=== PATIENT | male | born 1950 | race Caucasian/White ===

== ENCOUNTER 2022-06-16 07:41 | Inpatient (IN) ==
--- NOTE | 2022-05-28 14:00 | PAT Medication Instructions ---
Medication Instructions Date of Service May 28, 2022 Home Medications Alaria [place] 1 tab PO BID [place] 1 tab PO BID Reishi Oxly 1 tab PO QAM Oxly Nutrition 1 tab PO BID Oxly Nutrition [place] 1 tab PO BID Oxly Nutrition [place] 1 tab PO BID ascorbate calcium (vitamin C) 500 mg capsule 500 mg PO BID cholecalciferol (vitamin D3) 50 mcg (2,000 unit) capsule (Vitamin D3) 50 mcg PO QAM STOP taking 2 weeks before surgery Alaria Ox[place] 1 tab PO BID [place] 1 tab PO BID Reishi Oxly 1 tab PO QAM Oxly Nutrition 1 tab PO BID Oxly Nutrition [place] 1 tab PO BID Oxly Nutrition [place] 1 tab PO BID DO NOT take the morning of surgery ascorbate calcium (vitamin C) 500 mg capsule 500 mg PO BID cholecalciferol (vitamin D3) 50 mcg (2,000 unit) capsule (Vitamin D3) 50 mcg PO QAM Take evening before surgery ascorbate calcium (vitamin C) 500 mg capsule 500 mg PO BID OTHERWISE NOTHING TO EAT OR DRINK AFTER MIDNIGHT Other Notes If you have any questions please call us at [phone] or [phone] or [phone] or [phone]
--- NOTE | 2022-06-03 09:46 | History & Physical Report ---
Date of Service June 03, 2022 date of surgery: 06/16/22 Procedure: Right Total Knee Arthroplasty Surgeon: Dalton Hernandez Assessment & Plan (1) Arthritis of right knee: Plan: Further care discussed with patient and at this point in time has failed conservative measures and would like to proceed with a right total knee replacement. Plan on discharge will be home with home health physical therapy. DVT prophylaxiswith TEDs, SCDs and will also place on aspirin 81 mg p.o. b.i.d. for a month postop. Patient will have follow up appointment in our office two weeks post op for staple/suture removal and re-evaluation. Patient otherwise has no other questions or concerns. The risks and benefits have been discussed including, but not limited to, risk of infection, nerve injury, stiffness, loss of motion, failure to improve, etc. Reasonable outcomes and options of treatment were discussed. An explanation of appropriate alternatives to the procedure that may be advantageous were discussed and their risks and benefits, as well as the risks and benefits of not proceeding with treatment. I offered to answer any additional inquiries concerning the treatment involved. All the patient's questions were answered. The patient is agreeable, understanding of the treatment plan and alternatives, and wishes to proceed with the treatment plan. History of Present Illness Chief Complaint: Right knee pain Primary Care Provider: Devon Lopez Rashad is a 71 year old male who complains of right knee pain, presents for pre- op evaluation prior to a right total knee replacement by Dr Hernandez at [facility]. he complains of pain, decreased range of motion, and stiffness in the right knee. Currently the patient states that the symptoms are moderate-severe and his pain is described as aching, sharp and throbbing. The symptoms are aggravated by ascending stairs, daily activities, first steps while awake walking. Prior NSAIDs include IBU and Aleve. He has been treated with previous Zilretta and visco injections in the past without much relief. Allergies Allergy/AdvReac Type Severity Reaction Status Date / Time No Known Allergies Allergy Verified 05/27/22 10:10 Home Medications Medication Instructions Recorded Confirmed Type Alaria [place] 1 tab PO BID 05/27/22 05/27/22 History Old Marucu 1 tab PO BID 05/27/22 05/27/22 History Reishi [place] 1 tab PO QAM 05/27/22 05/27/22 History [place] Nutrition 1 tab PO BID 05/27/22 05/27/22 History [place] Nutrition Ciss[place] 1 tab PO BID 05/27/22 05/27/22 History [place] Nutrition Japense Knot 1 tab PO BID 05/27/22 05/27/22 History ascorbate calcium (vitamin C) 500 500 mg PO BID 05/27/22 05/27/22 History mg capsule cholecalciferol (vitamin D3) 50 50 mcg PO QAM 05/27/22 05/27/22 History mcg (2,000 unit) capsule (Vitamin D3) Past Med/Surg History Medical History Appendiceal carcinoid tumor (~2013) Chronic back pain Degenerative disc disease History of COVID-10 October 2022. hospitalized for 1 week at [facility]. no ventilator. mild covid pneumonia at the time. occasional voice weakness. Hx of colonic polyp Spinal stenosis Surgical History H/O hemicolectomy (~2013) [facility] History of appendectomy (~2013) PAH (not a complete removal), had a drainage tube -> appendiceal tumor found and transferred care to [place] History of colonoscopy Status post endovenous radiofrequency ablation (RFA) of saphenous vein bilateral Family History Other No family history of adverse response to anesthesia Social History Smoking Status: Never smoker Second Hand Exposure: No; Do You Dip or Chew Tobacco: No; Tobacco Cessation Education Requested by Patient: No Hx Alcohol Use: No Hx Substance Use: No Preferred Language: Nigerien Communication Ability: Effective Compressor Service Technician Required: No Beliefs That Will Affect Care: None Current Living Situation: Significant Other Other Information That Helps Us Care for You: No Feels Safe at Home: Yes Safety Concerns: Feels Safe At This Time Assistive Devices: Denture - Upper and Walker Assistive Devices Comment: lower partial Review of Systems Review of Systems: All systems reviewed & are unremarkable except as noted in HPI & below Constitutional: no fever, no chills and no sweats Respiratory: no cough and no dyspnea Cardiovascular: no chest pain, no dyspnea and no orthopnea Gastrointestinal: no abdominal pain, no nausea and no vomiting Musculoskeletal: as per Subjective / HPI Physical Exam Physical Exam: HT: 5ft 10in WT: 131kg Constitutional: WD/WN, vitals as above no acute distress Respiratory: normal respiratory effort, lungs clear to auscultation no respiratory distress, no labored breathing and does not use accessory muscles Cardiovascular: RRR, no murmur, no edema Gastrointestinal (Abdomen): normal bowel sounds, soft, nontender, no hepatosplenomegaly Musculoskeletal: Knee: + knee abnormal to inspection (RIGHT KNEE: ), + effusion (+1 effusion), + limited ROM of knee (ROM 0/3/110), + knee ROM with crepitation, + joint line tenderness (medial joint line) and + Javi's sign positive; no deformity, no skin erythema, no ecchymosis, no surgical incision, no valgus laxity, no varus laxity, anterior drawer test negative, Kallie's sign negative and pivot shift test negative Results & Data Results & Data ([facility]) Diagnostic Findings Right Knee X-ray: Right knee series showing advanced degenerative changes to the right knee, narrowing of the medial compartment and patello-femoral joint with patellar spurring noted, findings showing joint space narrowing of the medial compartment and patello-femoral joint, osteophyte formation and subchondral sclerosis noted. overall varus alignment. no acute bony pathology noted.
--- NOTE | 2022-06-03 14:14 | Anesthesiology Consultation ---
Date of Service June 03, 2022 Assessment & Plan (1) Encounter for pre-operative examination: Plan - Case reviewed with Dr. De aPz who advised that patient is acceptable to proceed if no active bleeding issues such as bleeding gums/nosebleeds. Dr. Mix advised no bleeding gums, nosebleeds or other indications of bleeding at this time. He states his platelets have chronically been reduced without issue/complication. - medical clearance 06/02/22: "...preop clearance...right total knee...lab work, EKG and chest x-ray done...all were unremarkable...cleared from medical standpoint for surgery..." - COVID screening: Per assessment on 06/03/2022: Travel screen negative, no known COVID-19 positive contacts or current COVID-19 related symptoms in past 2 weeks. Surgeon arranging preop COVID testing, scheduled 06/12/2022. Awaiting results. Chart Review Chart Review: Acceptable Risk for Surgery and Patient seen in Pre Admission Testing Teaching & Discussion Pre-Anesthesia Teaching/Discussion Notes: Instructed NPO after midnight before surgery, except medications with 15 cc of water. Medication instructions provided according to the PAT guidelines. History Surgery Operation Date: 06/16/22 14:05 Proposed Procedures p Right Total Knee Arthroplasty - Dalton Hernandez DO Height/Weight Height: 5 ft 10 in Weight: 135.5 kg Allergies Allergy/AdvReac Type Severity Reaction Status Date / Time No Known Allergies Allergy Verified 05/27/22 10:10 Medications Home Medications Medication Instructions Recorded Confirmed Last Taken Alaria [place] 1 tab PO BID 05/27/22 05/27/22 Unknown Old Marucu 1 tab PO BID 05/27/22 05/27/22 Unknown Reishi [place] 1 tab PO QAM 05/27/22 05/27/22 Unknown [place] Nutrition 1 tab PO BID 05/27/22 05/27/22 Unknown [place] Nutrition Ciss[place] 1 tab PO BID 05/27/22 05/27/22 Unknown [place] Nutrition Japense Knot 1 tab PO BID 05/27/22 05/27/22 Unknown ascorbate calcium (vitamin C) 500 500 mg PO BID 05/27/22 05/27/22 Unknown mg capsule cholecalciferol (vitamin D3) 50 50 mcg PO QAM 05/27/22 05/27/22 Unknown mcg (2,000 unit) capsule (Vitamin D3) Past Medical History Medical History (Updated 06/03/22 @ 15:11 by Maye Kim PA-C) Appendiceal carcinoid tumor (~2013) Chronic back pain Colon cancer Degenerative disc disease History of COVID-10 October 2022. hospitalized for 1 week at [facility]. no ventilator. mild covid pneumonia at the time. occasional voice weakness. Spinal stenosis Patient denies h/o stroke, seizures, heart attack, heart failure, DM, HTN, blood clots or blood transfusions. Exercise / Class Metabolic Activity III < 4 Walking/Shop/Light housework (denies CP or SOB with usual activities) Past Family History Family History Other No family history of adverse response to anesthesia Past Surgical History Surgical History (Updated 06/03/22 @ 14:56 by Maye Kim PA-C) H/O hemicolectomy 09/2015, [facility] History of appendectomy (~2013) PAH (not a complete removal), had a drainage tube -> appendiceal tumor found and transferred care to [place] History of colonoscopy Status post endovenous radiofrequency ablation (RFA) of saphenous vein bilateral Past Anesthesia History No Hx of Anesthesia Complications and No Family Hx of Anesthesia Complications History of PONV No Hx of PONV and No Hx of Motion Sickness Social History Smoking Status: Never smoker Do You Dip or Chew Tobacco: No Hx Alcohol Use: Yes alcohol intake frequency: holidays/special occasions only Hx Substance Use: No Review of Systems Patient denies chest pain, shortness of breath, dyspnea on exertion, snoring, witnessed apneas, reflux, fever, chills, cough, wheezing, or palpitations. Physical Exam Vital Signs Vitals BP 153/82 P 63 TEMP 98.4 SP02 96% on RA RESP 17 Physical Mildly limited cervical extension range of motion without pain TMD 3.5 finger breaths Mallampati Score 2 Dentition: full upper denture and partial lower denture, two remaining lower teeth; denies chipped or loose teeth Lungs: normal respiratory effort. Clear throughout to auscultation, no adventitious breath sounds Cardiac: regular rate and rhythm, no murmurs noted Carotid arteries: negative bruit bilat Lab Results Anesthesia Preop Results Results Anesthesia Widget: PT 10.9 Seconds (9.0-12.0) 06/03/22 PTT 27.6 Seconds (21.0-31.0) 06/03/22 INR 1.0 (0.9-1.1) 06/03/22 HA1c 5.2 % (4.5-5.6) 06/03/22 Urine Color Dark Yellow 06/03/22 Urine Appearance Clear (Clear) 06/03/22 Urine pH 5.0 (4.5-7.5) 06/03/22 Urine Specific Mobile 1.020 (1.000-1.030) 06/03/22 Urine Protein Negative (Negative) 06/03/22 Urine Glucose (UA) Negative (Negative) 06/03/22 Urine Ketones Negative (Negative) 06/03/22 Urine Blood Negative (Negative) 06/03/22 Urine Nitrite Negative (Negative) 06/03/22 Urine Bilirubin Negative (Negative) 06/03/22 Urine Urobilinogen Negative (Negative) 06/03/22 Urine Leukocyte Esterase Negative (Negative) 06/03/22 Blood Type B Positive 06/03/22 Antibody Screen NEGATIVE 06/03/22 Testing Laboratory Results 04/23/2022 WBC: 6.7 H/H: 16/48 PLATELETS: 128 SODIUM: 142 POTASSIUM: 4.3 CHLORIDE: 109 CO2: 26 BUN: 21 CREATININE: 1.1 GLUCOSE: 91 Electrocardiogram Date: 06/03/22 Sinus bradycardia, rate 51 bpm RBBB Chest X-Ray Date: 04/23/22 2.1 cm nodular density overlies the right upper lung raising the possibility of a pulmonary nodule. Further evaluation is recommended with contrast enhanced CT of the chest Diffuse idiopathic skeletal hyperostosis Mild degenerative changes Mildly exaggerated thoracic kyphosis
[~2022-06-16 07:41] MED LIST: ACETAMINOPHEN 500 MG TAB PO SCH; CeleBREX 200 MG CAP PO SCH; FAMOTIDINE 20 MG TAB PO SCH; GABAPENTIN 300 MG CAP PO SCH; LR 15ML/HR IV SCH; METOCLOPRAMIDE HCL 10 MG TABLET PO SCH; ROPIVACAINE 0.5% HCL/PF 150 MG, BUPIVACAINE 0.75% MPF 20 ML, EPINEPHrine 30MG/30ML (OR ... INFIL SCH; TRANEXAMIC ACID 1,000 MG **IV Intra-op IV SCH; TRANEXAMIC ACID 1,000 MG **IV Pre-op IV SCH; dexAMETHasone 4 MG TAB PO SCH
[2022-06-16] MEDS ORDERED: ROPIVACAINE 0.5% 5 MG/ML 30 ML VIAL ONE (07:57)
[2022-06-16] MEDS ORDERED: BUPIVACAINE 0.5 % 5 MG/1 ML PF 10ML VIAL ONE (07:57)
[2022-06-16] MEDS ORDERED: EPINEPHrine INJ 1 MG/ML AMP ONE (07:57)
--- NOTE | 2022-06-16 08:41 | History & Physical Bridge Note ---
Date of Service June 16, 2022 History & Physical Bridge Note I have examined the patient, reviewed the History & Physical and in the interval since the performance of the History & Physical I have noted the following changes of clinical significance: no changes noted
[2022-06-16] MEDS ORDERED: DEXAMETHASONE SOD INJ 4 MG/ML VIAL ONE (10:42)
[2022-06-16] MEDS ORDERED: LIDOCAINE 2% MPF LOCAL 5 ML VIAL INFIL ONE (10:42)
[2022-06-16] MEDS ORDERED: MIDAZOLAM HCL 1 MG/ML 2ML VIAL ONE (10:42)
[2022-06-16] MEDS ORDERED: PROPOFOL IV EMULSION 10 MG/ML 20 ML VIAL IV ONE ×2 (10:42→11:45)
[2022-06-16] MEDS ORDERED: fentaNYL citrate 100 MCG/2 ML VIAL ONE (10:42)
[2022-06-16] MEDS ORDERED: ORTHO JOINT ANESTHETIC ONE (10:56)
--- NOTE | 2022-06-16 12:34 | Operative Report ---
Post Operative Report Pre & Post Diagnosis Operation Date: 06/16/22 10:45 Pre-Op Diagnosis: Osteoarthritis, Right Knee Post-Op Diagnosis: Osteoarthritis, Right Knee I identified the patient and participated in the time-out.: Yes Procedure Operation Date: 06/16/22 10:45 Actual Procedures p Right Total Knee Arthroplasty(Right) utilizing [employer] journey to an en bloc total knee arthroplasty size femur 9 tibia 7 polyeleven patella 35 adams- Dalton Hernandez DO Surgeon Dalton Hernandez DO Scrap Piler JUSTYN Ross Estimated Blood Loss 5 Findings Consistent with Post-Op Diagnosis Patient presents with severe end-stage tricompartmental DJD varus alignment subchondral sclerosis marginal osteophyte subchondral cystic changes moderate to large effusion Specimens Bone and cartilage Drains Medium bore Hemovac Anesthesia Type MAC Spinal Regional Complications none Disposition Accompanied Patient To Recovery: No Disposition: Recovery Room Indications Patient resents with severe end-stage DJD no response to conservative manage including physical therapy anti-inflammatories relative rest activity modification corticosteroid injection viscosupplementation above intraoperative findings were noted. Description of Procedure After proper prepping and draping of the Right lower extremity anterior midline incision was made over the region of the extensor extensor mechanism after meticulous hemostasis was obtained and maintained in subcutaneous tissues a medial parapatellar incision was made The patella was subluxed lateralward the medial lateral gutter were cleaned from any hypertrophic synovitis and scar tissue of the distal femoral block was placed and the distal femoral osteotomy cut was made subsequently the chamfers anterior and posterior osteotomy cuts were made utilizing the 4-in-1 block the tibia was subsequently subluxed anteriorward medial and ateral meniscal remnants were excised in their entirety remnants of the anterior and posterior cruciate ligaments were excised in their entirety excellent exposure of the proximal tibia was obtained the tibial osteotomy guide was placed on the proximal tibial osteotomy cut was made once again the knee was irrigated with copious amounts of sterile saline solution the patella was subsequently everted lateralward thickened scar tissue around the patella was removed the patella was subsequently cut utilizing a freehand technique and was drilled prepared for final preparation and placement of patella socially flexion-extension gaps were checked and the equal and symmetric trials were placed to the appropriate femoral and tibial trials with poly-spacer being placed for equal flexion and extension gaps and full range of motion including extension to 0 and flexion to 140 the trial components after having been taken to recovery range of motion was subsequently removed meticulous hemostasis was obtained and maintained subsequently a knee block injection of joint cocktail including ropivacaine 0.5% 150 mg. Bupivacaine 0.5% epinephrine 1-200,030 mL's toradol 30 mg dexamethasone 4 mg ketamine 10 mg clonidine 100 micrograms normal saline solution 30 mg was infiltrated into the soft tissues of the posterior knee medial lateral gutters and periosteal synovium special attention was paid to protect neurovascular structures at all times subsequently trial components having been removed the knee was irrigated with sterile saline solution. debris was removed the proximal tibia was subsequently prepared and was made ready for the placement of the tibial component tibial component was also cemented and tamped into position the femoral component was subsequently placed and cemented in the position the patellar component was subsequently cemented in position because hemostasis once again obtained and maintained wound having been thoroughly irrigated with debridement and debridement lavage was performed as well as a medial parapatellar incision closed with #1 Vicryl in interrupted fashion subcutaneous was closed with #2 Vicryl skin was closed with skin clips. PA-C was necessary for prepping and drapping as well as wound closure of deep fascia Sub cutaneous tissue and skin and was necessary for the case. A sterile compressive dressing was placed patient was taken to recovery in stable condition of report dictated by David I attest to the content of the Intraoperative Record and any orders documented therein. Any exceptions are noted below.Due to the complex nature of the procedure, the entire surgery was performed with the operational assistance of JUSTYN Ross. The prosthetics assistant, under direct supervision, was involved in the actual performance of all aspects of the surgical procedure including hemostasis, tissue retraction and incision, instrument management, patient positioning, and wound closure. I attest to the content of the Intraoperative Record and any orders documented therein. Any exceptions are noted below.
--- NOTE | 2022-06-16 13:44 | Anesthesiology Progress Note ---
Date of Service June 16, 2022 Anesthesia Post Procedure Vital Signs Vital Signs: Temp Pulse Pulse Resp BP Pulse Ox O2 Del Method 06/16/22 13:40 59 L 17 118/62 97 Room Air 06/16/22 13:30 59 L 15 106/56 L 96 Oxymask 06/16/22 13:20 58 L 12 104/54 L 96 Oxymask 06/16/22 13:13 36.3 C L 64 14 104/51 L 97 Oxymask 06/16/22 08:14 36.8 C 58 L 20 166/86 H 96 Room Air O2 Flow Rate 06/16/22 13:40 06/16/22 13:30 4 06/16/22 13:20 4 06/16/22 13:13 6 06/16/22 08:14 Transfer of Care Handoff Completed per policy Notes Mental Status: alert / awake / arousable Patient Amnestic to Procedure: Yes Nausea / Vomiting: adequately controlled Pain: adequately controlled Airway Patency, RR, SpO2: stable & adequate BP & HR: stable & adequate Hydration State: stable & adequate Neuraxial Anesthesia: was administered and sensory block is resolving Anesthetic Complications: no major complications apparent and Pt Satisfied with anesthetic care
--- NOTE | 2022-06-16 14:03 | XRay Report ---
RIGHT KNEE 2 VIEWS History: Right total knee arthroplasty. Degenerative arthritis. Postop. FINDINGS: The patient is status post a right total knee arthroplasty. The hardware is intact. No frac ture or dislocation . Surgical drains are in place. IMPRESSION: Right total knee arthroplasty. No evidence for hardware complication. ACT 112: Negative or not required by law. Electronically signed by: Reji Lew M.D. 06/16/2022 2:02 PM
[2022-06-16] MEDS ORDERED: diphenhydrAMINE Capsule 25 MG CAP PO PRN (15:24)
[2022-06-16] MEDS ORDERED: MAGNESIUM HYDROXIDE SUSP 30 ML UDC PO PRN (15:24)
[2022-06-16] MEDS ORDERED: HYDROmorphone INJ 1 MG/ML SYRINGE IV PRN (15:24)
[2022-06-16] MEDS ORDERED: NALOXONE HCL 0.4 MG/1 ML VIAL/CARP IV PRN (15:24)
[2022-06-16] MEDS ORDERED: ONDANSETRON INJ 2 MG/ML 2 ML VIAL IV PRN (15:24)
[2022-06-16] MEDS ORDERED: oxyCODONE HCL IR 5 MG TAB (IMMEDIATE RELEASE) PO PRN (15:24)
[2022-06-16] MEDS ORDERED: METOCLOPRAMIDE HCL INJ 5 MG/ML 2 ML VIAL IV PRN (15:24)
[2022-06-16] MEDS ORDERED: bisacodyL 10 MG SUPP PR PRN (15:24)
[2022-06-16] MEDS: KETOROLAC TROMETHAMINE 15 MG/ML VIAL IV SCH ×2 (16:43→20:55)
[2022-06-16] MEDS: ACETAMINOPHEN 500 MG TAB PO SCH ×2 (16:43→22:21)
[2022-06-16] MEDS: SODIUM CHLORIDE 0.9% 1000ML 1,000 ML IV SCH (16:43)
[2022-06-16] MEDS: ceFAZolin 2000MG 2,000 MG/15 ML SYR IV SCH (18:39)
[2022-06-16] MEDS: ASCORBIC ACID 500 MG TAB PO SCH (20:52)
[2022-06-16] MEDS: DOCUSATE SODIUM 100 MG CAP PO SCH (20:52)
[2022-06-16] MEDS: ASPIRIN 81 MG ECTAB PO SCH (20:52)
[2022-06-16] MEDS: CeleBREX 200 MG CAP PO SCH (20:53)
[2022-06-16] MEDS ORDERED: SENNA 8.6 MG TAB PO SCH (21:00)
[2022-06-17] MEDS: SODIUM CHLORIDE 0.9% 1000ML 1,000 ML IV SCH (01:22)
[2022-06-17] MEDS: ceFAZolin 2000MG 2,000 MG/15 ML SYR IV SCH (02:25)
[2022-06-17] MEDS: KETOROLAC TROMETHAMINE 15 MG/ML VIAL IV SCH ×2 (02:25→10:44)
[2022-06-17] MEDS: ACETAMINOPHEN 500 MG TAB PO SCH ×2 (05:05→13:23)
[2022-06-17 08:25] LABS: Hematocrit (blood only) 43.1 % (40.1-51.0); Hemoglobin 15.2 g/dl (14.0-18.0); Mean Corpuscular Hemoglobin 31.3 pg (25.0-34.0); Mean Corpuscular Hgb Conc 35.3 g/dL (32.0-36.0); Mean Corpuscular Volume 88.9 fL (80.0-100.0); Mean Platelet Volume 12.1 fL (9.4-12.4); Platelet Count 144 K/uL (130-400); RDW Coefficient of Variation 13.1 % (11.5-14.5); RDW Standard Deviation 42.4 fL (36.4-46.3); Red Blood Count 4.85 M/uL (4.63-6.08); White Blood Count 14.15 K/ul (4.8-10.8)
[2022-06-17 08:45] LABS: BUN Creatinine Ratio 18.5 (10-20); Calcium 8.7 mg/dl (8.5-10.1); Creatinine Clr Calc Pharmacy 84.2 ml/min; Est GFR (African American) 78.5 ml/min; Est GFR (Non-African American) 67.7 ml/min; Potassium 3.8 mmol/L (3.5-5.1)
[2022-06-17] MEDS ORDERED: CHOLECALCIFEROL 1,000 UNITS 25 MCG TAB PO SCH (09:00)
[2022-06-17] MEDS ORDERED: MULTIVITAMIN TAB PO SCH (09:00)
[2022-06-17] MEDS: ASCORBIC ACID 500 MG TAB PO SCH (10:42)
[2022-06-17] MEDS: CeleBREX 200 MG CAP PO SCH (10:42)
[2022-06-17] MEDS: ASPIRIN 81 MG ECTAB PO SCH (10:42)
[2022-06-17] MEDS: DOCUSATE SODIUM 100 MG CAP PO SCH (10:43)
--- NOTE | 2022-06-17 14:39 | Orthopedic Progress Note ---
Date of Service June 17, 2022 Assessment & Plan (1) Arthritis of right knee: Plan: Postop day #1 right total knee arthroplasty -PT/OT -Pain management as written -AM labs as above -DVT prophylaxis: SCDs, teds, aspirin 81 mg twice daily -Discharge planning: Plan on discharge with outpatient PT. Plan to discharge home today. Admission and Anticipated Discharge Date Admission Date: June 16, 2022 Subjective Patient is postop day 1 right total knee. He is doing well this morning. He is hoping to go home. No other complaints. Denies chest pain, shortness breath, nausea/vomiting/diarrhea, fever/chills. Review of Systems Review of Systems: All systems reviewed & are unremarkable except as noted in Subjective Physical Exam Physical Exam: Right knee: Dressing is clean, dry, intact. Toes are mobile, no calf tenderness. Good dorsiflexion. Distally neurovascular status and sensation intact. Constitutional: WD/WN, vitals as above Results & Data ([place]) Vital Signs (Past 12 Hours) Vital Signs Temp Pulse Resp BP Pulse Ox O2 Del Method 06/17/22 12:31 36.7 C 55 L 18 148/76 H 97 Room Air 06/17/22 07:54 36.4 C L 56 L 18 189/73 H 96 Room Air 06/17/22 03:02 36.6 C 54 L 17 144/78 H 96 Room Air Laboratory Results Lab Results 06/16/22 06/17/22 06/17/22 Range/Units 08:03 07:53 07:53 WBC 14.15 H (4.8-10.8) K/ul RBC 4.85 (4.63-6.08) M/uL Hgb 15.2 (14.0-18.0) g/dl Hct 43.1 (40.1-51.0) % MCV 88.9 (80.0-100.0) fL MCH 31.3 (25.0-34.0) pg MCHC 35.3 (32.0-36.0) g/dL RDW Std Deviation 42.4 (36.4-46.3) fL RDW Coeff of Jenny 13.1 (11.5-14.5) % Plt Count 144 (130-400) K/uL MPV 12.1 (9.4-12.4) fL Sodium 139 (136-145) mmol/L Potassium 3.8 (3.5-5.1) mmol/L Chloride 107 (98-107) mmol/L Carbon Dioxide 24 (21-32) mmol/L Anion Gap 8 (3-11) BUN 20 (6-23) mg/dl Creatinine 1.08 (0.6-1.4) mg/dl Est Cr Clr Drug Dosing 84.2 ml/min Est GFR ( Amer) 78.5 ml/min Est GFR (Non-Af Amer) 67.7 ml/min BUN/Creatinine Ratio 18.5 (10-20) Glucose 115 H (70-99(Fasting)) mg/dl Calcium 8.7 (8.5-10.1) mg/dl SARS-CoV-2, RNA, NAAT NEGATIVE (NEGATIVE)
--- NOTE | 2022-06-17 17:59 | Discharge Summary ---
Date of Service date of discharge: June 17, 2022 date of admission: 06-16-22 Admission HPI Per Admitting Provider Rashad is a 71 year old male who complains of right knee pain, presents for pre- op evaluation prior to a right total knee replacement by Dr Hernandez at [facility]. he complains of pain, decreased range of motion, and stiffness in the right knee. Currently the patient states that the symptoms are moderate-severe and his pain is described as aching, sharp and throbbing. The symptoms are aggravated by ascending stairs, daily activities, first steps while awake walking. Prior NSAIDs include IBU and Aleve. He has been treated with previous Zilretta and visco injections in the past without much relief. Principal Diagnosis right knee arthritis Discharge Exam Musculoskeletal right knee: NVDI, calf SNT, negative saida sign. DP palpable, able to wiggle toes/ankle movement without difficulty. PARADISE dressing clean dry and intact. expected post-operative bruising noted. Discharge Data Allergies Allergy/AdvReac Type Severity Reaction Status Date / Time No Known Allergies Allergy Verified 06/16/22 08:12 Procedures Performed Operation Date: 06/16/22 10:45 Actual Procedures p Right Total Knee Arthroplasty(Right) - Dalton Hernandez, Ordered Studies 06/16/22 05:00 US - OR guided needle placemen Routine Hospital Course (1) Arthritis of right knee: Postop day #1 right total knee arthroplasty -PT/OT -Pain management as written -AM labs as above -DVT prophylaxis: SCDs, teds, aspirin 81 mg twice daily -Discharge planning: Plan on discharge with outpatient PT. Plan to discharge home today. Total Time Total Time Spent Total Time Spent (In Minutes): 20 Discharge Plan Discharge Items Patient Disposition: Home - Home Health Services Reason For Visit: Osteoarthritis, Right Knee Discharge Diagnosis: RIGHT TOTAL KNEE REPLACEMENT Activity: Per Instructions section Weightbearing Comment: WBAT WITH WALKER Non-emergency contact: Primary Care Provider Call non-emergency contact if: you have any medication questions, your temperature is above 101, your wound has increased redness, your wound has increased drainage and your wound pain has increased Follow-up/Referrals: Devon Lopez M.D. [Primary Care Provider] - Addtl Attending Provider Instructions: ACTIVITY RECOMMENDATIONS: SELF CARE INSTRUCTIONS AFTER TOTAL KNEE REPLACEMENT A. You may need to continue a physical therapy program after discharge from the hospital. There are several options available to you. Your doctor will assist you in selecting the best one for you. 1. An out-patient facility 2 to 3 times a week for therapy or home therapy. 2. Continue working on all exercises taught to you in the hospital. Your goals should be to increase bending of your knee to 90 degrees and beyond and to fully straighten your knee. B. You may progress at your own pace from walking with a walker or crutches to a cane; then to no assistive devices. C. Make walking a part of your daily routine. Be up as much as comfortable with rest periods throughout the day. Rest with leg elevation is very important. Use the ice wrap frequently for the first 3-4 weeks. D. There are no restrictions on activities. You may ride in a car, shop, participate in antenna engineer and all social activities. E. Wear the long elastic stockings (VALE hose) 20 hours a day for 2 weeks after surgery. They can be removed several times a day for laundering and for a bath. F. You may shower, no tub baths until cleared by your doctor. SPECIAL CARE INSTRUCTIONS: VERY IMPORTANT TO READ AND REVIEW A. There are a few signs you need to watch for after you are home. Call [facility] if you notice any of the followin. Increased severe knee pain. Some pain is expected especially when you exercise. 2. Increased swelling in your leg or knee; pain or swelling of the calf muscle in either lower leg. 3. Any fluid drainage from the incision. 4. Shortness of breath or chest pain. B. Please call [facility] at if you have any concerns or questions about your operation or recovery. The doctor or his nurse will return your call promptly. C. You must take antibiotics before dental work, bladder, bowel or other surgery. Your doctor will provide you with a permanent care to carry describing this precaution. IMPORTANT: * REMEMBER TO TAKE ASPIRIN, 81 MG, TWICE DAILY FOR 4 WEEKS UNLESS OTHERWISE DIRECTED. THIS IS YOUR BLOOD THINNER. * HIGH RISK PATIENTS MAY BE PRESCRIBED A STRONGER BLOOD THINNER. THIS WILL BE PROVIDED AT DISCHARGE. * CALL IF INCREASED PAIN, REDNESS, DRAINAGE OR FEVER GREATER THAT 101. * WEAR VALE HOSE 20 HOURS PER DAY FOR 2 WEEKS. * PARADISE Dressing- This is a large suction dressing covering your incision. This will help pull any excess drainage from the wound and allow your incision to heal properly. You may shower with this if you can keep the unit outside of the shower. If any bleeding or leakage is noted please call your doctor's office. This will remain on your incision for 7 days and then should be removed. This can be done yourself or by the home nursing staff if applicable. The entire unit is disposable once removed. Once removed, keep incision clean and dry. If redness or drainage is noted, please call your surgeon. ONCE PARADISE IS REMOVED, FOLLOW THESE INSTRUCTIONS: DERMABOND Prineo- This is a mesh tape dressing that is covered with glue. It should remain in place until the incision is properly healed, usually 10-14 days. This dressing is designed to naturally slough off. You may trim the excess mesh tape as it peels off. Incision may be briefly wet in a shower. Dry immediately by blotting with a clean, dry towel. Do not bath or swim until instructed by your doctor. Do not scratch, rub, or pick at the dressing. Do not apply any topical ointments or lotions until dressing is completely removed and/or instructed by your doctor. There may be a small piece of suture material at one end of your incision. Do not pull or trim this. If it is bothersome or catching on clothing, you may cover it with a band-aid. IF INCISION IS LEAKING THROUGH DRESSING, CALL THE OFFICE . FOLLOW UP VISIT: If appointment is not already scheduled: Please call [facility] to make a follow-up appointment for 2 weeks after your surgery at . Pending Studies at Discharge: No Stand-Alone Forms: [employer], Smoking Cessation Medications and DC Order Prescriptions: New celecoxib [Celebrex] 200 mg Capsule 200 mg PO BID Qty: 60 0RF aspirin 81 mg Tablet,Delayed Release (Dr/Ec) 81 mg PO BID Qty: 60 0RF acetaminophen [Tylenol Extra Strength] 500 mg Tablet 1,000 mg PO Q8 Qty: 60 0RF oxycodone 5 mg Tablet 5 - 10 mg PO .Q4h-6h MDD 6 PRN (Reason: pain) Qty: 30 0RF Rx Instructions: Ongoing therapy, Dr. Montenegro supervising cefadroxil 500 mg capsule 500 mg PO BID Qty: 14 0RF Continued cholecalciferol (vitamin D3) [Vitamin D3] 50 mcg (2,000 unit) Capsule 50 mcg PO QAM ascorbate calcium (vitamin C) 500 mg Capsule 500 mg PO BID Discontinued Reishi [place] 1 tab PO QAM Alaria [place] 1 tab PO BID Old Marucu 1 tab PO BID [place] Nutrition 1 tab PO BID [place] Nutrition Cissus 1 tab PO BID [place] Nutrition Japense Knot 1 tab PO BID Discharge Orders: Discharge Order (Routine); Ordered 06/17/22 Ordered By: Geo Castro/Other Patient Handouts: Knee Osteoarthritis, Osteoarthritis Admission Data Admit Date/Time: 06/16/22 13:13 Attending Provider: Dalton Hernandez Admit Provider: Dalton Hernandez Primary Care Provider: Devon Lopez Other Providers: [facility],Home Health Other Interventions: Discharge Summary Assessment (RN) Last Done: 06/17/22 15:37
== END 2022-06-17 16:22 | disposition home health service (06) | DRG 470 ==
LOC: ASU 07:41 → PACUINP 07:41 → OBSVTOIN 13:13 → 3N 15:21

== ENCOUNTER 2023-04-21 08:11 | Observation (INO) ==
--- NOTE | 2023-03-15 10:40 | PAT Medication Instructions ---
Medication Instructions Date of Service March 15, 2023 Home Medications ascorbate calcium (vitamin C) 500 mg capsule 500 mg PO QAM cholecalciferol (vitamin D3) 50 mcg (2,000 unit) capsule (Vitamin D3) 50 mcg PO QAM Beta Prostate 1 tab PO BID cyanocobalamin (vitamin B-12) 1,000 mcg tablet (Vitamin B-12) 1,000 mcg PO QAM tpwfejud-lplkedpe-vxicb acid 400 mcg-vit K 20 mcg-lycop 300 mcg tablet 1 tab PO QAM STOP taking 2 weeks before surgery Beta Prostate 1 tab PO BID DO NOT take the morning of surgery ascorbate calcium (vitamin C) 500 mg capsule 500 mg PO QAM cholecalciferol (vitamin D3) 50 mcg (2,000 unit) capsule (Vitamin D3) 50 mcg PO QAM cyanocobalamin (vitamin B-12) 1,000 mcg tablet (Vitamin B-12) 1,000 mcg PO QAM zlyusijq-lxscnkqf-ssipf acid 400 mcg-vit K 20 mcg-lycop 300 mcg tablet 1 tab PO QAM OTHERWISE NOTHING TO EAT OR DRINK AFTER MIDNIGHT Other Notes If you have any questions please call us at [phone] or [phone] or [phone] or [phone]
--- NOTE | 2023-03-16 15:53 | Anesthesiology Consultation ---
Date of Service March 16, 2023 Assessment & Plan (1) Encounter for pre-operative examination: - COVID screening: Per assessment on 03/16: No known COVID-19 positive contacts or current COVID-19 related symptoms. Travel screen negative. At surgeon discretion if preop Covid testing being done. - Outpatient joint assessment: Pt currently scheduled for inpatient pathway. If surgeon requests review for outpatient joint pathway, patient is not recommended candidate for outpatient joint program from anesthesia standpoint. - S/P Right TKA (06/16/22): SAB at L3/4 (x2 attempts) + PNB at [facility]. No issues noted per post-op anesthesia progress note. Chart Review Chart Review: Acceptable Risk for Surgery and Patient seen in Pre Admission Testing Teaching & Discussion Pre-Anesthesia Teaching/Discussion Notes: Instructed NPO after midnight before surgery,except medications with 15 cc of water. Medication instructions provided according to the PAT guidelines. History Surgery Operation Date: 04/21/23 09:10 Proposed Procedures p Left Total Knee Arthroplasty - Dalton Hernandez DO Height/Weight Height: 5 ft 10 in Weight: 141.7 kg Allergies Allergy/AdvReac Type Severity Reaction Status Date / Time No Known Allergies Allergy Verified 03/15/23 09:02 Medications Home Medications Medication Instructions Recorded Confirmed Last Taken ascorbate calcium (vitamin C) 500 500 mg PO QAM 05/27/22 03/15/23 06/02/22 mg capsule cholecalciferol (vitamin D3) 50 50 mcg PO QAM 05/27/22 03/15/23 06/02/22 mcg (2,000 unit) capsule (Vitamin D3) Beta Prostate 1 tab PO BID 03/15/23 03/15/23 Unknown cyanocobalamin (vitamin B-12) 1,000 mcg PO QAM 03/15/23 03/15/23 Unknown 1,000 mcg tablet (Vitamin B-12) wyqnmdwr-hhiiohhn-pawgl acid 400 1 tab PO QAM 03/15/23 03/15/23 Unknown mcg-vit K 20 mcg-lycop 300 mcg tablet Past Medical History Medical History Appendiceal carcinoid tumor (~2013) Chronic back pain Colon cancer Degenerative disc disease History of COVID-19 09/2021- hospitalized for 1 week at [facility], "mild" Covid PNA Morbid obesity Pulmonary embolism 08/2022, AC discontinued 12/2022, no issues since Spinal stenosis Exercise / Class Metabolic Activity III < 4 Walking/Shop/Light housework Past Family History Family History Other No family history of adverse response to anesthesia Past Surgical History Surgical History H/O hemicolectomy 09/2015, [facility] History of appendectomy History of colonoscopy History of tooth extraction History of total right knee replacement (TKR) 06/16/22 Dr. Hernandez @ [facility] Status post endovenous radiofrequency ablation (RFA) of saphenous vein bilateral Past Anesthesia History No Hx of Anesthesia Complications and No Family Hx of Anesthesia Complications History of PONV No Hx of PONV and No Hx of Motion Sickness Social History Smoking Status: Never smoker Do You Dip or Chew Tobacco: No Hx Alcohol Use: Yes (very rarely) alcohol intake frequency: holidays/special occasions only Hx Substance Use: No substance use type: does not use Review of Systems Patient denies chest pain, shortness of breath, reflux, cough, wheezing, palp itations. Physical Exam Vital Signs VITALS BP 137/81 P 66 TEMP 98.3 SP02 97%RA RESP 18 PHYSICAL Full cervical extension range of motion. Full TMJ range of motion. TMD 4 finger breaths Mallampati Score 3 Dentition: lower partial (lower caps to attach denture), upper full denture, Lungs: clear throughout to auscultation Cardiac: regular rate and rhythm, no murmurs noted Spine: normal Carotid arteries: negative bruit Extremities: no LE edema Lab Results Anesthesia Preop Results Results Anesthesia Widget: WBC 6.16 K/ul (4.8-10.8) 03/16/23 Hgb 16.3 g/dl (14.0-18.0) 03/16/23 Hct 47.3 % (42.0-52.0) 03/16/23 Plt 141 K/uL (130-400) 03/16/23 Na 138 mmol/L (136-145) 03/16/23 K 3.7 mmol/L (3.5-5.1) 03/16/23 Cl 107 mmol/L (98-107) 03/16/23 CO2 26 mmol/L (21-32) 03/16/23 BUN 18 mg/dl (6-23) 03/16/23 Creat 1.14 mg/dl (0.6-1.4) 03/16/23 Glucose Level 107 mg/dl (70-99(Fasting)) H 03/16/23 PT 10.9 Seconds (9.0-12.0) 03/16/23 PTT 27.2 Seconds (21.0-31.0) 03/16/23 INR 1.0 (0.9-1.1) 03/16/23 HA1c 5.4 % (4.5-5.6) 03/16/23 Blood Type B Positive 03/16/23 Antibody Screen NEGATIVE 03/16/23 Testing Laboratory Results 03/17/23 UA negative leuk est/nitrite Electrocardiogram Date: 06/03/22 Sinus bradycardia 55 bpm. RBBB. Chest X-Ray Date: 04/23/22 2.1 cm nodular density overlies the right upper lung raising the possibility of a pulmonary nodule. Further evaluation is recommended with contrast enhanced CT of the chest. Diffuse idiopathic skeletal hyperostosis. Mild degenerative changes. Mildly exaggerated thoracic kyphosis. CXR reviewed by PCP and per Medical clearance 06/02/22: "...preop clearance...right total knee...lab work, EKG and chest x-ray done...all were unremarkable...cleared from medical standpoint for surgery..." > Right TKA performed 05/2022 at [facility]. No issues noted per post-op anesthesia progress note. COVID-19 Risk Screen Screening Information COVID-19 Screen Date: 03/16/23 Exposure 21 Days Family/Household +COVID Last 21 Days: No Exposure 10 Days Any COVID Exposure Last 10 Days: No Symptoms Last 10 Days Experienced COVID Sx Last 10 Days: No + COVID 0-90 Days COVID + in Last 0-90 Days: No
--- NOTE | 2023-03-23 08:41 | History & Physical Report ---
Date of Service March 23, 2023 date of surgery: 04/21/23 Procedure: Left Total Knee Arthroplasty Surgeon: Dalton Hernandez Assessment & Plan (1) Arthritis of knee, left: Plan: Further care discussed with patient and at this point in time has failed conservative measures and would like to proceed with a left total knee replacement. Plan on discharge will be home with home health physical therapy. DVT prophylaxiswith TEDs, SCDs and will also place on Xarelto x 1 month postop, has h/o PE. Patient will have follow up appointment in our office two weeks post op for staple/suture removal and re-evaluation. Patient otherwise has no other questions or concerns. The risks and benefits have been discussed including, but not limited to, risk of infection, nerve injury, stiffness, loss of motion, failure to improve, etc. Reasonable outcomes and options of treatment were discussed. An explanation of appropriate alternatives to the procedure that may be advantageous were discussed and their risks and benefits, as well as the risks and benefits of not proceeding with treatment. I offered to answer any additional inquiries concerning the treatment involved. All the patient's questions were answered. The patient is agreeable, understanding of the treatment plan and alternatives, and wishes to proceed with the treatment plan. History of Present Illness Chief Complaint: left knee pain Primary Care Provider: Devon Lopez Rashad is a 72 year old male who complains of Left knee pain, presents for pre-op evaluation prior to his left total knee replacement by Dr Hernandez at [facility]. he complains of pain, decreased range of motion, and stiffness in his left knee. Currently the patient states that the symptoms are moderate-severe and his pain is described as aching, sharp and throbbing. The symptoms are aggravated by ascending stairs, daily activities, first steps while awake walking. Prior NSAIDs include IBU and Aleve. He has been treated with previous Zilretta and visco injections in the past without much relief, as well as amniotic fluid injection. he is s/p Right TKA approximately 1 year ago. Allergies Allergy/AdvReac Type Severity Reaction Status Date / Time No Known Allergies Allergy Verified 03/15/23 09:02 Home Medications Medication Instructions Recorded Confirmed Type ascorbate calcium (vitamin C) 500 500 mg PO QAM 05/27/22 03/15/23 History mg capsule cholecalciferol (vitamin D3) 50 50 mcg PO QAM 05/27/22 03/15/23 History mcg (2,000 unit) capsule (Vitamin D3) Beta Prostate 1 tab PO BID 03/15/23 03/15/23 History cyanocobalamin (vitamin B-12) 1,000 mcg PO QAM 03/15/23 03/15/23 History 1,000 mcg tablet (Vitamin B-12) xwrbxunk-ihennuti-brzva acid 400 1 tab PO QAM 03/15/23 03/15/23 History mcg-vit K 20 mcg-lycop 300 mcg tablet Past Med/Surg History Medical History Appendiceal carcinoid tumor (~2013) Chronic back pain Colon cancer Degenerative disc disease History of COVID-19 09/2021- hospitalized for 1 week at [facility], "mild" Covid PNA Morbid obesity Pulmonary embolism 08/2022, AC discontinued 12/2022, no issues since Spinal stenosis Surgical History (Updated 03/23/23 @ 08:41 by Mike Donald PA-C) H/O hemicolectomy 09/2015, [facility] History of appendectomy History of colonoscopy History of tooth extraction History of total right knee replacement (TKR) 06/16/22 Dr. Hernandez @ [facility] Right Total Knee Arthroplasty(Right) utilizing [employer] journey to an en bloc total knee arthroplasty size femur 9 tibia 7 polyeleven patella 35 oval Status post endovenous radiofrequency ablation (RFA) of saphenous vein bilateral Family History Other No family history of adverse response to anesthesia Social History Smoking Status: Never smoker Second Hand Exposure: No; Do You Dip or Chew Tobacco: No; Hx Alcohol Use: Yes (very rarely) Hx Substance Use: No Preferred Language: Kazakh Communication Ability: Effective Benefits Clerk Required: No Beliefs That Will Affect Care: None marital status: Life Partner Current Living Situation: Significant Other Feels Safe at Home: Yes Assistive Devices: Denture - Upper, Denture - Lower, Glasses and Walker Review of Systems Review of Systems: All systems reviewed & are unremarkable except as noted in HPI & below Constitutional: no fever, no chills and no sweats Respiratory: no cough and no dyspnea Cardiovascular: no chest pain, no dyspnea and no orthopnea Gastrointestinal: no abdominal pain, no nausea and no vomiting Musculoskeletal: as per Subjective / HPI Physical Exam Physical Exam: HT: 5ft 10in WT: 141.7kg Constitutional: WD/WN, vitals as above no acute distress Respiratory: normal respiratory effort, lungs clear to auscultation no respiratory distress, no labored breathing and does not use accessory muscles Cardiovascular: RRR, no murmur, no edema Gastrointestinal (Abdomen): normal bowel sounds, soft, nontender, no hepatosplenomegaly Musculoskeletal: Knee: + knee abnormal to inspection (LEFT KNEE), + effusion (+1 effusion), + limited ROM of knee (ROM 0/3/110), + knee ROM with crepitation, + joint line tenderness (medial joint line) and + Javi's sign positive; no deformity, no skin erythema, no ecchymosis, no valgus laxity, no varus laxity, anterior drawer test negative, Kallie's sign negative and pivot shift test negative Results & Data Results & Data Diagnostic Findings Left Knee X-ray: left knee series confirm advanced degenerative changes to the left knee, greatest medial compartments and patellofemoral joint, showing joint space narrowing, osteophyte formation and subchondral sclerosis. no acute bony pathology noted.
[~2023-04-21 08:11] MED LIST changes: +BUPIVACAINE 0.5 % 5 MG/1 ML PF 10ML VIAL ONE; -LR 15ML/HR IV SCH; +LR 500ML BOLUS, THEN 15ML/HR IV SCH; +ROPIVACAINE 0.5% 5 MG/ML 30 ML VIAL ONE; -ROPIVACAINE 0.5% HCL/PF 150 MG, BUPIVACAINE 0.75% MPF 20 ML, EPINEPHrine 30MG/30ML (OR ... INFIL SCH; +ROPIVACAINE 0.5% HCL/PF 150 MG, BUPIVACAINE 0.75% MPF 20 ML, EPINEPHrine 30MG/30ML (OR ... INSTIL SCH
[2023-04-21] MEDS ORDERED: MIDAZOLAM HCL 1 MG/ML 2ML VIAL ONE (08:41)
[2023-04-21] MEDS ORDERED: PROPOFOL IV EMULSION 10 MG/ML 20 ML VIAL IV ONE (08:42)
[2023-04-21] MEDS ORDERED: LIDOCAINE 2% 2 ML VIAL/AMP(20MG/ML) INFIL ONE (08:42)
--- NOTE | 2023-04-21 09:31 | History & Physical Bridge Note ---
Date of Service April 21, 2023 History & Physical Bridge Note I have examined the patient, reviewed the History & Physical and in the interval since the performance of the History & Physical I have noted the following changes of clinical significance: no changes noted
[2023-04-21] MEDS ORDERED: fentaNYL citrate PF 100 MCG/2 ML VIAL ONE ×3 (10:24→12:02)
[2023-04-21] MEDS ORDERED: ORTHO JOINT ANESTHETIC ONE (10:28)
[2023-04-21] MEDS ORDERED: fentaNYL citrate PF 100 MCG/2 ML VIAL IV PRN (10:35)
[2023-04-21] MEDS ORDERED: ONDANSETRON INJ 2 MG/ML 2 ML VIAL IV PRN ×2 (10:35→15:01)
[2023-04-21] MEDS ORDERED: ATROPINE SULFATE 0.1 MG/ML 10ML SYR IV PRN (10:35)
[2023-04-21] MEDS ORDERED: ePHEDrine sulfate 50 MG/ML AMP IV PRN (10:35)
[2023-04-21] MEDS ORDERED: DEXAMETHASONE SOD INJ 4 MG/ML VIAL ONE (11:29)
[2023-04-21] MEDS ORDERED: HYDROmorphone INJ 2 MG/ML SYR/VIAL ONE (11:37)
[2023-04-21] MEDS ORDERED: ePHEDrine sulfate 50 MG/ML SYR ONE (12:10)
[2023-04-21] MEDS ORDERED: ONDANSETRON INJ 2 MG/ML 2 ML VIAL ONE (12:10)
--- NOTE | 2023-04-21 12:25 | Operative Report ---
Post Operative Report Pre & Post Diagnosis Operation Date: 04/21/23 10:10 Pre-Op Diagnosis: Left Knee Osteoarthritis Post-Op Diagnosis: Left Knee Osteoarthritis I identified the patient and participated in the time-out.: Yes Procedure Operation Date: 04/21/23 10:10 Actual Procedures p Left Total Knee Arthroplasty(Left) utilizing [email or web address] jouraurora 2 patient matched total knee arthroplasty size femur 8 tibia 6 poly 9 patella 35 adams- Dalton Hernandez DO Surgeon Dalton Hernandez DO Ged Teacher Luigi ALEJANDRA Estimated Blood Loss 40 Findings Consistent with Post-Op Diagnosis Patient presents with severe end-stage tricompartmental DJD varus alignment [id number] eburnated bone marginal osteophytes subchondral sclerosis with subchondral cystic changes and a moderate to large effusion Specimens Bone card Drains Medium bore Hemovac Anesthesia Type MAC Spinal Regional Complications none Disposition Accompanied Patient To Recovery: No Disposition: Recovery Room Indications Patient presents with severe end-stage tricompartmental DJD after failed attempted conservative management occluding physical therapy anti-inflammatories relative rest activity modification corticosteroid injection viscosupplementation above intraoperative findings were noted Description of Procedure After proper prepping and draping of the Right lower extremity anterior midline incision was made over the region of the extensor extensor mechanism after meticulous hemostasis was obtained and maintained in subcutaneous tissues a medial parapatellar incision was made The patella was subluxed lateralward the medial lateral gutter were cleaned from any hypertrophic synovitis and scar tissue of the distal femoral block was placed and the distal femoral osteotomy cut was made subsequently the chamfers anterior and posterior osteotomy cuts were made utilizing the 4-in-1 block the tibia was subsequently subluxed anteriorward medial and ateral meniscal remnants were excised in their entirety remnants of the anterior and posterior cruciate ligaments were excised in their entirety excellent exposure of the proximal tibia was obtained the tibial osteotomy guide was placed on the proximal tibial osteotomy cut was made once again the knee was irrigated with copious amounts of sterile saline solution the patella was subsequently everted lateralward thickened scar tissue around the patella was removed the patella was subsequently cut utilizing a freehand technique and was drilled prepared for final preparation and placement of patella socially flexion-extension gaps were checked and the equal and symmetric trials were placed to the appropriate femoral and tibial trials with poly-spacer being placed for equal flexion and extension gaps and full range of motion including extension to 0 and flexion to 140 the trial components after having been taken to recovery range of motion was subsequently removed meticulous hemostasis was obtained and maintained subsequently a knee block injection of joint cocktail including ropivacaine 0.5% 150 mg. Bupivacaine 0.5% epinephrine 1-200,030 mL's toradol 30 mg dexamethasone 4 mg ketamine 10 mg clonidine 100 micrograms normal saline solution 30 mg was infiltrated into the soft tissues of the posterior knee medial lateral gutters and periosteal synovium special attention was paid to protect neurovascular structures at all times subsequently trial components having been removed the knee was irrigated with sterile saline solution. debris was removed the proximal tibia was subsequently prepared and was made ready for the placement of the tibial component tibial component was also cemented and tamped into position the femoral component was subsequently placed and cemented in the position the patellar component was subsequently cemented in position because hemostasis once again obtained and maintained wound having been thoroughly irrigated with debridement and debridement lavage was performed as well as a medial parapatellar incision closed with #1 Vicryl in interrupted fashion subcutaneous was closed with #2 Vicryl skin was closed with skin clips. PA-C was necessary for prepping and drapping as well as wound closure of deep fascia Sub cutaneous tissue and skin and was necessary for the case. A sterile compressive dressing was placed patient was taken to recovery in stable condition of report dictated by David I attest to the content of the Intraoperative Record and any orders documented therein. Any exceptions are noted below.Due to the complex nature of the procedure, the entire surgery was performed with the operational assistance of Luigi ALEJANDRA the assistant store manager trainee, under direct supervision, was involved in the actual performance of all aspects of the surgical procedure including hemostasis, tissue retraction and incision, instrument management, patient positioning, and wound closure. I attest to the content of the Intraoperative Record and any orders documented therein. Any exceptions are noted below.
--- NOTE | 2023-04-21 13:36 | XRay Report ---
TWO VIEWS LEFT KNEE CLINICAL HISTORY: Postoperative examination. FINDINGS: AP and crosstable lateral portable views of the left knee are obtained. A left knee arthrop lasty is in near anatomic alignment. There has been undersurface remodeling of the patella. No acute fracture is seen. There are expected postoperative changes around the knee including a surgical drain , soft tissue edema, and subcutaneous gas. IMPRESSION: Expected postoperative changes status post left knee arthroplasty. No acute fracture is s een. ACT 112: Negative or not required by law. Electronically signed by: Berhane Smith M.D. 04/21/2023 1:35 PM
--- NOTE | 2023-04-21 13:54 | Anesthesiology Progress Note ---
Date of Service April 21, 2023 Anesthesia Post Procedure Vital Signs Vital Signs: Temp Pulse Pulse Resp BP Pulse Ox O2 Del Method 04/21/23 13:30 78 12 127/71 93 Oxymask 04/21/23 13:40 79 14 115/68 95 Oxymask 04/21/23 13:20 77 12 104/59 L 93 Oxymask 04/21/23 13:12 97.0 F L 78 11 L 98/65 L 93 Oxymask 04/21/23 08:49 98.2 F 72 20 152/103 H 95 Room Air O2 Flow Rate 04/21/23 13:30 6 04/21/23 13:40 4 04/21/23 13:20 6 04/21/23 13:12 6 04/21/23 08:49 Pain Intensity Left Knee: Pain Intensity: 0 Transfer of Care Handoff Completed per policy Notes Mental Status: alert / awake / arousable and participated in evaluation Patient Amnestic to Procedure: Yes Nausea / Vomiting: adequately controlled Pain: adequately controlled Airway Patency, RR, SpO2: stable & adequate BP & HR: stable & adequate Hydration State: stable & adequate Neuraxial Anesthesia: was administered and sensory block is resolving Anesthetic Complications: no major complications apparent and Pt Satisfied with anesthetic care
[2023-04-21] MEDS ORDERED: NALOXONE HCL 0.4 MG/1 ML VIAL/CARP IV PRN (15:01)
[2023-04-21] MEDS ORDERED: diphenhydrAMINE 50 MG/ML VIAL IV PRN (15:01)
[2023-04-21] MEDS ORDERED: bisacodyL 10 MG SUPP PR PRN (15:01)
[2023-04-21] MEDS ORDERED: MAGNESIUM HYDROXIDE SUSP 30 ML UDC PO PRN (15:01)
[2023-04-21] MEDS: ACETAMINOPHEN 500 MG TAB PO SCH ×2 (16:00→21:09)
[2023-04-21] MEDS: SODIUM CHLORIDE 0.9% 1000ML 1,000 ML IV SCH (17:54)
[2023-04-21] MEDS: ceFAZolin 2000MG 2,000 MG/15 ML SYR IV SCH (19:12)
[2023-04-21] MEDS ORDERED: BETA PROSTATE PO SCH (21:00)
[2023-04-21] MEDS: DOCUSATE SODIUM 100 MG CAP PO SCH (21:08)
[2023-04-21] MEDS: SENNA 8.6 MG TAB PO SCH (21:09)
[2023-04-22] MEDS: ceFAZolin 2000MG 2,000 MG/15 ML SYR IV SCH (03:30)
[2023-04-22] MEDS: SODIUM CHLORIDE 0.9% 1000ML 1,000 ML IV SCH (04:57)
[2023-04-22] MEDS: ACETAMINOPHEN 500 MG TAB PO SCH ×3 (05:46→19:29)
[2023-04-22] MEDS ORDERED: KETOROLAC TROMETHAMINE 15 MG/ML VIAL IV PRN (06:00)
[2023-04-22 06:04] LABS: Hematocrit (blood only) 39.2 % (42.0-52.0); Hemoglobin 13.9 g/dl (14.0-18.0); Mean Corpuscular Hemoglobin 31.3 pg (25.0-34.0); Mean Corpuscular Hgb Conc 35.5 g/dL (32.0-36.0); Mean Corpuscular Volume 88.3 fL (80.0-100.0); Mean Platelet Volume 11.7 fL (9.4-12.4); Platelet Count 137 K/uL (130-400); RDW Coefficient of Variation 13.7 % (11.5-14.5); Red Blood Count 4.44 M/uL (4.70-6.10)
[2023-04-22 06:11] LABS: BUN Creatinine Ratio 15.3 (10-20); Calcium 8.2 mg/dl (8.6-10.3); Creatinine Clr Calc Pharmacy 74.1 ml/min; Est GFR (Non-African American) 56.9 ml/min; Potassium 3.8 mmol/L (3.5-5.1)
--- NOTE | 2023-04-22 06:36 | Orthopedic Progress Note ---
Date of Service April 22, 2023 Assessment & Plan (1) History of total left knee replacement: Plan: POD #1 s/p left TKA pt/ot dvt proph with VALE/SCD/Xarelto. was previously treated with Eliquis for his PE but states he had "issues" with Eliquis plan for d/c home with HHPT Admission and Anticipated Discharge Date Admission Date: April 21, 2023 Subjective POD #1 s/p Left TKA Review of Systems Constitutional: no fever, no chills and no sweats Respiratory: no cough and no dyspnea Cardiovascular: no chest pain and no dyspnea Gastrointestinal: no abdominal pain, no nausea and no vomiting Physical Exam Physical Exam: Vital Signs Temp 36.7 C 04/22/23 03:00 Pulse 69 04/22/23 03:00 Resp 20 04/22/23 03:00 BP 122/71 04/22/23 03:00 Pulse Ox 96 04/22/23 03:00 O2 Del Method Room Air 04/22/23 03:00 O2 Flow Rate 2 04/21/23 16:51 Intake & Output 04/21/23 04/21/23 04/22/23 06:59 18:59 06:59 Intake Total 1622.5 / 2622.5 1000 / 2622.5 Output Total 380 / 815 435 / 815 Balance 1242.5 / 1807.5 565 / 1807.5 Weight 141 kg Intake: IV 272.5 / 1272.5 1000 / 1272.5 Lactated Ringe r's 1,000 ml @ 15 0 / 0 mls/hr IV .Q24 H MARIA LUZ Rx#: [id number] Sodium Chlorid e 0.9% 1000ML 1, 1000 / 1000 000 ml @ 100 m ls/hr IV .Q10H MARIA LUZ Rx#:[id number] Tranexamic Aci d / 0.7% NaCl 1, 200 / 200 000 mg In 100 ml @ 600 mls/hr IV TODAY@0600 MARIA LUZ Rx#:[id number] ceFAZolin 3000 MG 72.5 ml @ 130 72.5 / 72.5 mls/hr IV PREO P MARIA LUZ Rx#: [id number] IV Perioperative 1350 / 1350 Output: Urine 300 / 500 200 / 500 Estimated Blood Loss 40 / 40 Drain Output 40 / 275 235 / 275 Left Knee Hemo vac 40 / 275 235 / 275 Other: Weight Measureme nt Method Standing Scale Musculoskeletal: Left Leg: NVDI, calf SNT, negative saida sign. DP palpable, able to wiggle toes/ankle movement without difficulty. dressing clean dry and intact. Results & Data Vital Signs (Past 12 Hours) Vital Signs Temp Pulse Pulse Resp BP Pulse Ox O2 Del Method 04/22/23 03:00 36.7 C 69 20 122/71 96 Room Air 04/21/23 23:00 36.7 C 71 18 138/79 94 Room Air 04/21/23 21:10 Room Air 04/21/23 19:48 36.6 C 77 18 132/77 93 Room Air Laboratory Results Laboratory Results WBC 12.20 K/ul (4.8-10.8) H 04/22/23 05:35 RBC 4.44 M/uL (4.70-6.10) L 04/22/23 05:35 Hgb 13.9 g/dl (14.0-18.0) L 04/22/23 05:35 Hct 39.2 % (42.0-52.0) L 04/22/23 05:35 MCV 88.3 fL (80.0-100.0) 04/22/23 05:35 MCH 31.3 pg (25.0-34.0) 04/22/23 05:35 MCHC 35.5 g/dL (32.0-36.0) 04/22/23 05:35 RDW Std Deviation 44.0 fL (36.4-46.3) 04/22/23 05:35 RDW Coeff of Jenny 13.7 % (11.5-14.5) 04/22/23 05:35 Plt Count 137 K/uL (130-400) 04/22/23 05:35 MPV 11.7 fL (9.4-12.4) 04/22/23 05:35 Sodium 137 mmol/L (136-145) 04/22/23 05:35 Potassium 3.8 mmol/L (3.5-5.1) 04/22/23 05:35 Chloride 107 mmol/L (98-107) 04/22/23 05:35 Carbon Dioxide 22 mmol/L (21-32) 04/22/23 05:35 Anion Gap 8 (3-11) 04/22/23 05:35 BUN 19 mg/dl (6-23) 04/22/23 05:35 Creatinine 1.24 mg/dl (0.6-1.4) 04/22/23 05:35 Est Cr Clr Drug Dosing 74.1 ml/min 04/22/23 05:35 Est GFR ( Amer) 66.0 ml/min 04/22/23 05:35 Est GFR (Non-Af Amer) 56.9 ml/min 04/22/23 05:35 BUN/Creatinine Ratio 15.3 (10-20) 04/22/23 05:35 Glucose 153 mg/dl (70-99(Fasting)) H 04/22/23 05:35 Calcium 8.2 mg/dl (8.6-10.3) L 04/22/23 05:35 SARS-CoV-2, RNA, NAAT NEGATIVE (NEGATIVE) 04/21/23 08:35 Impressions Knee X-Ray 04/21/23 13:18 TWO VIEWS LEFT KNEE CLINICAL HISTORY: Postoperative examination. FINDINGS: AP and crosstable lateral portable views of the left knee are obtained. A left knee arthroplasty is in near anatomic alignment. There has been undersurface remodeling of the patella. No acute fracture is seen. There are expected postoperative changes around the knee including a surgical drain, soft tissue edema, and subcutaneous gas. IMPRESSION: Expected postoperative changes status post left knee arthroplasty. No acute fracture is seen. ACT 112: Negative or not required by law. Electronically signed by: Berhane Smith M.D. 04/21/2023 1:35 PM
[2023-04-22] MEDS: DOCUSATE SODIUM 100 MG CAP PO SCH ×2 (07:53→19:29)
[2023-04-22] MEDS: RIVAROXABAN 10 MG TABLET PO SCH (07:54)
[2023-04-22] MEDS: CYANOCOBALAMIN (B-12) 500 MCG TABLET PO SCH (07:54)
[2023-04-22] MEDS: ASCORBIC ACID 500 MG TAB PO SCH (07:54)
[2023-04-22] MEDS: CEROVITE ADV FORMULA TAB PO SCH (07:54)
[2023-04-22] MEDS: CHOLECALCIFEROL 1,000 UNITS 25 MCG TAB PO SCH (07:54)
[2023-04-22] MEDS: oxyCODONE HCL IR 5 MG TAB (IMMEDIATE RELEASE) PO PRN ×2 (08:36→19:28)
[2023-04-22] MEDS ORDERED: MULTIVITAMIN TAB PO SCH (09:00)
--- NOTE | 2023-04-22 11:12 | XRay Report ---
XR knee LT 1 or 2V routine CLINICAL HISTORY: post op TECHNIQUE: 2 views of the left knee were obtained. Comparison: Comparison is made to left knee radiograph [id number] FINDINGS: There is no evidence of an acute fracture. Redemonstration of postsurgical changes of total knee arth roplasty with drain in place and associated soft tissue swelling. IMPRESSION: Expected postsurgical appearance without evidence of acute fracture or other acute abnormality. ACT 112: Negative or not required by law. Electronically signed by: Lauri Dia M.D. 04/22/2023 11:11 AM
--- NOTE | 2023-04-22 16:27 | Orthopedic Progress Note ---
Date of Service April 22, 2023 Assessment & Plan (1) History of total left knee replacement: Plan: POD #1 s/p left TKA Unsure of cause of clicking or popping feeling patient is having at this time especially since I cannot appreciate it during flexion and extension actively and passively with my hand on the knee. Will discuss with Dr. Hernandez With patient's question of his knee feeling like it was going to buckle during ambulation, we will place him in an immobilizer for ambulation only and continue with range of motion as tolerated. Continue weightbearing as tolerated Repeat x-ray of the left knee shows no fractures or dislocations. Drain appears to be in the superior patellar pouch where it was placed. Plan for removal of drain tomorrow morning. Continue PT/OT protocols and we will see how he progresses. Admission and Anticipated Discharge Date Admission Date: April 21, 2023 Subjective Patient seen by Mike Donald PA-C this morning. No overt complaints at that time. I was called later on this morning concerning the patient having increased pain with weightbearing and patient stating that he had a clicking feeling in the knee. Patient also states that he feels like the knee was buckling. No other complaints. Currently he was sleeping upon arrival but easily awoken. Patient appears comfortable. States he is having a mild ache in the knee at this time but is not overtly painful. Physical Exam Physical Exam: Dressings are clean, dry, and intact. Arian wrap and cotton roll are removed. No overt swelling or erythema noted around the piyush dressing which is intact and dry. Hemovac drain is present and continues to have output. Patient is capable of doing a straight leg raise on his own without difficulty. I can take the patient through passive range of motion of the left knee to approximately 80 degrees. I cannot appreciate an audible or palpable clicking of the knee but patient states that he can feel something inside. He states this more centrally located. Calves are soft and nontender. Neurovascular intact. Toes are mobile. Sensation is completely intact. Two 6 inch Arian wraps replaced around the knee and continuing to keep the Hemovac in for now. Results & Data Vital Signs (Past 12 Hours) Vital Signs Temp Pulse Resp BP Pulse Ox O2 Del Method 04/22/23 14:54 36.9 C 67 17 147/66 H 93 Room Air 04/22/23 11:23 36.9 C 62 17 111/61 95 Room Air 04/22/23 06:49 36.6 C 71 17 128/72 98 Room Air
[2023-04-22] MEDS: SENNA 8.6 MG TAB PO SCH (19:29)
[2023-04-23] MEDS: oxyCODONE HCL IR 5 MG TAB (IMMEDIATE RELEASE) PO PRN (03:25)
[2023-04-23] MEDS: KETOROLAC TROMETHAMINE 15 MG/ML VIAL IV PRN ×2 (03:26→09:32)
[2023-04-23] MEDS: HYDROmorphone INJ 0.5 MG/0.5 ML SYR IV PRN ×2 (04:18→08:47)
[2023-04-23] MEDS: ACETAMINOPHEN 500 MG TAB PO SCH ×3 (05:43→21:31)
--- NOTE | 2023-04-23 06:11 | Orthopedic Progress Note ---
Date of Service April 23, 2023 Assessment & Plan (1) History of total left knee replacement: Plan: POD #2 s/p left TKA No further complaints of his clicking noises or feeling in the knee at this time. Continue PT/OT protocols. Weightbearing as tolerated with immobilizer on initially. Range of motion as tolerated at the bedside. DVT prophylaxis-Xarelto, SCDs, VALE inman Pain management as written. Discontinue drain this morning prior to PT. DC planning-we will see how he progresses with his physical therapy today. If he is having better pain control and ambulating fairly independently, consider possible discharge to home this afternoon. Admission and Anticipated Discharge Date Admission Date: April 21, 2023 Subjective Postop day 2 Patient awake and alert this morning. States he had a rough night. Pain control issues around 2 AM. Patient had fallen asleep and fell behind on his pain medications. He states that he was up with nursing with his immobilizer on and walked out into the hallway. He did say that it felt better with the immobilizer on at this time. No other complaints at this time. Physical Exam Physical Exam: Dressings are clean, dry, and intact. Calves are soft nontender. Neurovascular is intact. Toes are mobile. Results & Data Vital Signs (Past 12 Hours) Vital Signs Temp Pulse Resp BP Pulse Ox O2 Del Method 04/22/23 19:30 Room Air 04/22/23 21:00 36.9 C 62 16 138/75 93 Room Air
[2023-04-23] MEDS: DOCUSATE SODIUM 100 MG CAP PO SCH ×2 (08:43→21:31)
[2023-04-23] MEDS: CYANOCOBALAMIN (B-12) 500 MCG TABLET PO SCH (08:43)
[2023-04-23] MEDS: CEROVITE ADV FORMULA TAB PO SCH (08:43)
[2023-04-23] MEDS: ASCORBIC ACID 500 MG TAB PO SCH (08:43)
[2023-04-23] MEDS: CHOLECALCIFEROL 1,000 UNITS 25 MCG TAB PO SCH (08:44)
[2023-04-23] MEDS: RIVAROXABAN 10 MG TABLET PO SCH (08:46)
[2023-04-23] MEDS: KETOROLAC TROMETHAMINE 15 MG/ML VIAL IV SCH ×3 (15:04→23:29)
[2023-04-23] MEDS: SENNA 8.6 MG TAB PO SCH (21:31)
[2023-04-24] MEDS: KETOROLAC TROMETHAMINE 15 MG/ML VIAL IV SCH ×2 (05:44→12:25)
[2023-04-24] MEDS: ACETAMINOPHEN 500 MG TAB PO SCH (05:44)
[2023-04-24] MEDS: CYANOCOBALAMIN (B-12) 500 MCG TABLET PO SCH (08:58)
[2023-04-24] MEDS: CHOLECALCIFEROL 1,000 UNITS 25 MCG TAB PO SCH (08:58)
[2023-04-24] MEDS: DOCUSATE SODIUM 100 MG CAP PO SCH (08:58)
[2023-04-24] MEDS: CEROVITE ADV FORMULA TAB PO SCH (08:58)
[2023-04-24] MEDS: ASCORBIC ACID 500 MG TAB PO SCH (08:58)
[2023-04-24] MEDS: RIVAROXABAN 10 MG TABLET PO SCH (08:59)
--- NOTE | 2023-04-24 10:21 | Orthopedic Progress Note ---
Date of Service April 24, 2023 Assessment & Plan (1) History of total left knee replacement: Plan: POD #3 s/p left TKA No further complaints of his clicking noises or feeling in the knee at this time. Continue PT/OT protocols. Weightbearing as tolerated with immobilizer on initially. Range of motion as tolerated at the bedside. DVT prophylaxis-Charli, EDWARDs, VALE inman Pain management as written. D/C planning--plan for discharge home today after PT since his pain is controlled today. Admission and Anticipated Discharge Date Admission Date: April 23, 2023 Subjective Postop day 3 Patient states that his pain is much better this AM. Denies CP, SOB, LH. No new complaints today. Physical Exam Constitutional: WD/WN, vitals as above no acute distress Musculoskeletal: Knee: + surgical incision (Left knee: PARADISE dressing in place and functioning.); no deformity, no skin erythema, no ecchymosis and no surgical drain present (hemovac has been removed) Results & Data Vital Signs (Past 12 Hours) Vital Signs Temp Pulse Resp BP BP Pulse Ox O2 Del Method 04/24/23 07:06 143/82 H 04/24/23 07:05 36.7 C 55 L 18 173/85 H 96 Room Air
[2023-04-24] MEDS: oxyCODONE HCL IR 5 MG TAB (IMMEDIATE RELEASE) PO PRN (13:10)
--- NOTE | 2023-04-27 12:12 | Discharge Summary ---
Date of Service April 27, 2023 Admission HPI Per Admitting Provider Rashad is a 72 year old male who complains of Left knee pain, presents for pre-op evaluation prior to his left total knee replacement by Dr Hernandez at [facility]. he complains of pain, decreased range of motion, and stiffness in his left knee. Currently the patient states that the symptoms are moderate-severe and his pain is described as aching, sharp and throbbing. The symptoms are aggravated by ascending stairs, daily activities, first steps while awake walking. Prior NSAIDs include IBU and Aleve. He has been treated with previous Zilretta and visco injections in the past without much relief, as well as amniotic fluid in jection. he is s/p Right TKA approximately 1 year ago. Admission Exam Per Admitting Provider Physical Exam: HT: 5ft 10in WT: 141.7kg Constitutional: WD/WN, vitals as above no acute distress Respiratory: normal respiratory effort, lungs clear to auscultation no respiratory distress, no labored breathing and does not use accessory muscles Cardiovascular: RRR, no murmur, no edema Gastrointestinal (Abdomen): normal bowel sounds, soft, nontender, no hepatosplenomegaly Musculoskeletal: Knee: + knee abnormal to inspection (LEFT KNEE), + effusion (+1 effusion), + limited ROM of knee (ROM 0/3/110), + knee ROM with crepitation, + joint line tenderness (medial joint line) and + Javi's sign positive; no deformity, no skin erythema, no ecchymosis, no valgus laxity, no varus laxity, anterior drawer test negative, Kallie's sign negative and pivot shift test negative Principal Diagnosis Left Knee Osteoarthritis Discharge Data Allergies Allergy/AdvReac Type Severity Reaction Status Date / Time No Known Allergies Allergy Verified 04/21/23 08:47 Procedures Performed Operation Date: 04/21/23 10:10 Actual Procedures p Left Total Knee Arthroplasty(Left) - Dalton Hernandez DO Ordered Studies 04/21/23 05:00 US - OR guided needle placemen Routine Hospital Course (1) History of total left knee replacement: Patient was admitted on the above-noted date and had the above-noted surgery performed which he tolerated well. On his first postoperative day, he was seen early in the morning and had no overt complaints. Pain was controlled. Vital signs were stable and he was afebrile. Dressings were clean, dry, and intact. Calves were soft and nontender. Neurovascular was intact. Toes are mobile. Hemoglobin was 13.9. He was started on his PT and OT protocols and continued on his DVT prophylaxis and pain management. Later that morning, I was called by the nursing staff concerning the patient having pain in the knee and what he felt was a clicking noise. He was having some difficulty ambulating. I saw him later that afternoon. His Arian wrap and cotton roll were removed. Paradise dressing was intact. He had no overt swelling or erythema. He was capable of doing a straight leg raise on his own without difficulty and I was unable to reproduce any type of palpable or audible clicking noise in the knee getting him to approximately 80 degrees of flexion during range of motion. The Hemovac drain was maintained and a new Arian wrap was placed around the paradise dressing. Patient was having such pain that repeat x-rays were taken which showed no overt fractures or dislocations. A one-time dose of Toradol was added to his pain regimen and then later added as a scheduled dose in addition to his Oxycodone and hydromorphone. Patient had mentioned the knee felt like it was giving out and an immobilizer was placed for ambulation he was continued on his PT and OT protocols. By his second postoperative day, he had complained of pain control issues in the middle of the night. Overall he did feel better with the immobilizer on with ambulation. His Hemovac drain and Arian wrap were removed on the postop day 2 and he was continued on his PT protocols. He still had some minimal ambulation at that time it was felt that he needed to continue his PT and OT protocols. We had discussed that if he was not progressing with his PT that it was possible he would need a rehab stay postdischarge. Patient was in agreement. By his third postoperative day, the patient was ambulating better with longer distances. Pain was remaining controlled and he was feeling better overall. It was felt he could be discharged to home. Total Time Total Time Spent Total Time Spent (In Minutes): 10 Discharge Plan Discharge Items Patient Disposition: Home - Self-Care Reason For Visit: Left Knee Osteoarthritis Discharge Diagnosis: Left Knee Osteoarthritis Activity: Per Instructions section Weightbearing Comment: as tolerated with walker Non-emergency contact: Surgeon Call non-emergency contact if: you have any medication questions, your pain is not controlled, your temperature is above 101.5, your wound has increased redness and your wound has increased drainage Follow-up/Referrals: Dalton Hernandez DO [Surgeon] - (Follow up with Dr Hernandez or his PA in 2 weeks from the day of your surgery for your first post operative visit.) Devon Lopez M.D. [Primary Care Provider] - Diet: Regular Addtl Attending Provider Instructions: ACTIVITY RECOMMENDATIONS: SELF CARE INSTRUCTIONS AFTER TOTAL KNEE REPLACEMENT A. You may need to continue a physical therapy program after discharge from the hospital. There are several options available to you. Your doctor will assist you in selecting the best one for you. 1. An out-patient facility 2 to 3 times a week for therapy or home therapy. 2. Continue working on all exercises taught to you in the hospital. Your goals should be to increase bending of your knee to 90 degrees and beyond and to fully straighten your knee. B. You may progress at your own pace from walking with a walker or crutches to a cane; then to no assistive devices. C. Make walking a part of your daily routine. Be up as much as comfortable with rest periods throughout the day. Rest with leg elevation is very important. Use the ice wrap frequently for the first 3-4 weeks. D. There are no restrictions on activities. You may ride in a car, shop, p articipate in marketing communications manager and all social activities. E. Wear the long elastic stockings (VALE hose) 20 hours a day for 2 weeks after surgery. They can be removed several times a day for laundering and for a bath. F. You may shower, no tub baths until cleared by your doctor. SPECIAL CARE INSTRUCTIONS: VERY IMPORTANT TO READ AND REVIEW A. There are a few signs you need to watch for after you are home. Call [facility] if you notice any of the followin. Increased severe knee pain. Some pain is expected especially when you exercise. 2. Increased swelling in your leg or knee; pain or swelling of the calf muscle in either lower leg. 3. Any fluid drainage from the incision. 4. Shortness of breath or chest pain. B. Please call [facility] at if you have any concerns or questions about your operation or recovery. The doctor or his nurse will return your call promptly. C. You must take antibiotics before dental work, bladder, bowel or other surgery. Your doctor will provide you with a permanent care to carry describing this precaution. IMPORTANT: * REMEMBER TO TAKE RIVAROXABAN DAILY FOR ONE MONTH. THIS IS YOUR BLOOD THINNER. * HIGH RISK PATIENTS MAY BE PRESCRIBED A STRONGER BLOOD THINNER. THIS WILL BE PROVIDED AT DISCHARGE. * CALL IF INCREASED PAIN, REDNESS, DRAINAGE OR FEVER GREATER THAT 101. * WEAR VALE HOSE 20 HOURS PER DAY FOR 2 WEEKS. * PARADISE Dressing - This is a large suction dressing covering your incision. This will help pull any excess drainage from the wound and allow your incision to heal properly. You may shower with this if you can keep the unit outside of the shower. If any bleeding or leakage is noted please call your doctor's office. This will remain on your incision for 7 days and then should be removed. This can be done yourself or by the home nursing staff if applicable. The entire unit is disposable once removed. Once removed, keep incision clean and dry. If redness or drainage is noted, please call your surgeon. . Once your PARADISE dressing has been removed, follow these wound care instructions. DERMABOND Prineo- This is a mesh tape dressing that is covered with glue. It should remain in place until the incision is properly healed, usually 10-14 days. This dressing is designed to naturally slough off. You may trim the excess mesh tape as it peels off. Incision may be briefly wet in a shower. Dry immediately by blotting with a clean, dry towel. Do not bath or swim until instructed by your doctor. Do not scratch, rub, or pick at the dressing. Do not apply any topical ointments or lotions until dressing is completely removed and/or instructed by your doctor. There may be a small piece of suture material at one end of your incision. Do not pull or trim this. If it is bothersome or catching on clothing, you may cover it with a band-aid. FOLLOW UP VISIT: If appointment is not already scheduled: Please call [facility] to make a follow-up appointment for 2 weeks after your surgery at . Pending Studies at Discharge: No Stand-Alone Forms: My [employer], Smoking Cessation Medications and DC Order Prescriptions: New acetaminophen [Tylenol Extra Strength] 500 mg Tablet 1,000 mg PO Q8 21 Days Qty: 126 0RF Xarelto 10 mg Tablet 10 mg PO DAILY 28 Days Qty: 28 0RF oxycodone 5 mg Tablet 5 - 10 mg PO Q6H PRN (Reason: pain) Qty: 30 0RF Rx Instructions: ongoing therapy, supervising Dr Alan Hernandez. Max 6 tabs in 24 hours docusate sodium 100 mg Capsule 100 mg PO BID 10 Days Qty: 20 0RF cefadroxil 500 mg capsule 500 mg PO BID 14 Days Qty: 28 0RF Continued cholecalciferol (vitamin D3) [Vitamin D3] 50 mcg (2,000 unit) Capsule 50 mcg PO QAM ascorbate calcium (vitamin C) 500 mg Capsule 500 mg PO QAM Beta Prostate 1 tab PO BID cyanocobalamin (vitamin B-12) [Vitamin B-12] 1,000 mcg Tablet 1,000 mcg PO QAM fyofikhb-[id number]-usbsm-vit K-lycop 400-20-300 mcg Tablet 1 tab PO QAM Discharge Orders: Discharge Order (Routine); Ordered 04/24/23 Ordered By: Steven Pham Admission Data Admit Date/Time: 04/23/23 14:35 Attending Provider: Dalton Hernandez Admit Provider: Dalton Hernandez Primary Care Provider: Devon Lopez Other Providers: Santos Arndt ; Des Smalls Other Interventions: Discharge Summary Assessment (RN) Last Done: 04/24/23 11:27
== END 2023-04-24 14:32 | disposition home health service (06) ==
LOC: 3E 08:11 → ASU 08:11